=== PATIENT | female | born 1965 | race Caucasian/White ===

== ENCOUNTER 2019-02-02 18:59 | Emergency (ER) | payer BC ==
[2019-02-02] MEDS ORDERED: HYDROmorphone 2 MG/ML SDV IM ONE (19:18)
[2019-02-02] MEDS ORDERED: Sodium Chloride 0.9% 10 ML Syringe FLUSH PRN (19:18)
--- NOTE | 2019-02-02 19:22 | EDM.PDOC ---
ED HPI GENERAL MEDICAL PROBLEM - General Chief Complaint: General Stated Complaint: FALL Time Seen by Provider: 02/02/19 19:15 Source of Information: Reports: Patient, Family, RN History Limitations: Reports: No Limitations - History of Present Illness INITIAL COMMENTS - FREE TEXT/NARRATIVE: 53 yr female presents with right shoulder pain after fall at home, states her shoulder is dislocated. Friend is with her and is with her. States she fell forward onto sidewalk, didn't hit head and no LOC. Some pain to left knee and abrasion to left knee. Severe pain to right shoulder, good circulation noted to wrist, unable to touch arm r/t pain. X-ray ordered of shoulder. dental tech here to x-ray shoulder. Pt requesting Dr Jeronimo to assist. Consult with Dr Jeronimo and back up MD provider for this [employer], did present to ER for assessment of pt and review of x-rays. and friend providing comfort. Right Shoulder Pain Score (Numeric/FACES): 10 - Related Data Allergies Allergy/AdvReac Type Severity Reaction Status Date / Time amoxicillin [From Augmentin] Allergy Cannot Verified 02/02/19 22:22 Remember clavulanic acid Allergy Cannot Verified 02/02/19 22:22 [From Augmentin] Remember Sulfa (Sulfonamide Allergy Cannot Verified 02/02/19 22:22 Antibiotics) Remember Home Meds: Home Meds Metoprolol Succinate 1 tab PO DAILY 02/02/19 [History] Past Medical History HEENT History: Reports: Impaired Vision Cardiovascular History: Reports: High Cholesterol Respiratory History: Reports: None Gastrointestinal History: Reports: None 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: Musculoskeletal History: Reports: Osteoarthritis Neurological History: Reports: None Psychiatric History: Reports: Anxiety, Other (See Below) Other Psychiatric History: h/o anxiety Endocrine/Metabolic History: Reports: None Hematologic History: Reports: None Immunologic History: Reports: None Oncologic (Cancer) History: Reports: None Other Oncologic History: family hx Dermatologic History: Reports: None - Past Surgical History Female Surgical History: Reports: Section, Other (See Below) Musculoskeletal Surgical History: Reports: Arthroscopic Knee, Other (See Below) ED ROS GENERAL - Review of Systems Review Of Systems: See Below Constitutional: Reports: No Symptoms HEENT: Reports: No Symptoms. Denies: Glasses, Vision Change Respiratory: Reports: No Symptoms Cardiovascular: Reports: No Symptoms, Other (States history of heart problems) Musculoskeletal: Reports: Shoulder Pain, Other (knee pain). Denies: Neck Pain, Back Pain Skin: Reports: Other (minor bleeding from left knee, no other abrasions noted.) Neurological: Denies: Dizziness, Headache Psychiatric: Reports: Anxiety ED EXAM, GENERAL - Physical Exam Exam: See Below Exam Limited By: Physical Impairment (limited ROM and unable to examine arm.) General Appearance: Alert, Anxious, Other (extremely uncomfortable on presentation) Ears: Hearing Grossly Normal Nose: Normal Inspection, No Blood Throat/Mouth: Normal Voice, No Airway Compromise Head: Atraumatic, Normocephalic Neck: Normal Inspection, Supple, Full Range of Motion Respiratory/Chest: No Respiratory Distress Cardiovascular: Normal Peripheral Pulses, Regular Rate, Rhythm Extremities: Normal Capillary Refill, Limited Range of Motion (to left shoulder/ arm, propped with pillows. Deformity noted at shoulder area.) Neurological: Alert, Oriented, Normal Cognition Skin Exam: Warm, Dry, Normal Color Course - Vital Signs Last Recorded V/S: Last Vital Signs Temp Pulse 71 02/02/19 20:26 Resp 20 02/02/19 20:26 BP 130/60 02/02/19 20:47 Pulse Ox 97 02/02/19 20:26 - Orders/Labs/Meds Orders: Active Orders 24 hr Category Date Time Status Shoulder 1V Rt [CR] Stat Exams 02/02/19 19:37 Taken Shoulder Comp Rt [CR] Stat Exams 02/02/19 19:17 Taken Saline Lock Insert [OM.PC] Routine Oth 02/02/19 19:18 Ordered Meds: Medications Discontinued Medications Generic Name Dose Route Start Last Admin Trade Name Vic PRN Reason Stop Dose Admin Diazepam 5 mg 02/02/19 19:29 02/02/19 19:34 Valium IV 02/02/19 19:30 5 mg ONETIME ONE Administration Hydromorphone HCl 1 mg 02/02/19 19:18 02/02/19 19:17 Dilaudid IM 02/02/19 19:19 1 mg ONETIME ONE Administration Hydromorphone HCl 1 mg 02/02/19 19:29 02/02/19 19:32 Dilaudid IVPUSH 02/02/19 19:30 1 mg ONETIME ONE Administration Hydromorphone HCl 1 mg 02/02/19 19:52 02/02/19 19:51 Dilaudid IVPUSH 02/02/19 19:53 1 mg ONETIME ONE Administration Ondansetron HCl 4 mg 02/02/19 20:15 02/02/19 20:20 Zofran IVPUSH 02/02/19 20:16 4 mg ONETIME ONE Administration Sodium Chloride 10 ml 02/02/19 19:18 Saline Flush FLUSH ASDIRECTED PRN Keep Vein Open - Re-Assessments/Exams Free Text/Narrative Re-Assessment/Exam: 02/02/19 19:[address] Jeronimo. X-ray completed pre and post x-ray. Dilaudid 1 mg IM and Dilaudid 1mg IV given. Valium [address] Jeronimo slowly manipulated shoulder and back into place. 02/02/19 19:53 X-ray post dislocation with reduction noted. Pt states severe pain is achy, continues. Dilaudid 1 mg IV repeated. Will apply sling to arm, Rx for Vicoden 5/325 1 tab every 4-6 hour prn and Robaxin 500 mg, one tablet to use every 8 hr prn 02/02/19 19:58 Pt is resting well and no respiratory distress noted. She is visiting with her and no acute distress. F/U in clinic in 1 week. RN to monitor pt for another 40 minutes, Recommend to keep shoulder in alignment and protect shoulder and arm and keep arm next to body with use of the sling. Discussed discharge plan with use of Vicoden Robaxin, ice/heat to area as needed , Sling to arm X 1 week and RTC in 1 week to follow-up with PCP, may need PT consult at that time. Pt to call with any questions/concerns. RTC or ER if symptoms worsen. Departure - Departure Time of Disposition: 21:01 Disposition: Home, Self-Care 01 Condition: Good Clinical Impression: Dislocation, shoulder, anterior - Discharge Information *PRESCRIPTION DRUG MONITORING PROGRAM REVIEWED*: Not Applicable *COPY OF PRESCRIPTION DRUG MONITORING REPORT IN PATIENT ESAU: Not Applicable Instructions: Acetaminophen; Hydrocodone tablets or capsules, Methocarbamol tablets, Shoulder Dislocation, [id number] Forms: ED Department Discharge Additional Instructions: Take provided Vicodin as directed: 1 tablet by mouth every 4-6 hours as needed for pain. Also take provided Robaxin as directed: 1 tablet by mouth every 8 hours as needed for pain. Can also take Ibuprofen 600-800mg every 6-8 hours as needed for pain. Sling to affected arm for 1 week. May also use ice or heat to affected area to help with pain relief and reduce swelling. Follow up in clinic in 1 week. Diet and activity as tolerated. Call with any questions. - My Orders Last 24 Hours: My Active Orders 02/02/19 19:17 Shoulder Comp Rt [CR] Stat 02/02/19 19:18 Saline Lock Insert [OM.PC] Routine 02/02/19 19:37 Shoulder 1V Rt [CR] Stat - Assessment/Plan Last 24 Hours: My Active Orders 02/02/19 19:17 Shoulder Comp Rt [CR] Stat 02/02/19 19:18 Saline Lock Insert [OM.PC] Routine 02/02/19 19:37 Shoulder 1V Rt [CR] Stat Plan: Take Vicodin as directed: 1 tablet by mouth every 4-6 hours as needed for pain. Robaxin 1 tablet by mouth every 8 hours as needed for pain. May take Ibuprofen 600-800mg every 6-8 hours as needed for pain. Sling to affected arm for 1 week. Ice or heat to affected area will help with pain relief and reduce swelling. Follow up in clinic in 1 week, with PCP. Contact ER/provider if any questions or concerns.
[2019-02-02] MEDS ORDERED: HYDROmorphone 2 MG/ML SDV IVPUSH ONE (19:29)
[2019-02-02] MEDS ORDERED: diazePAM 5 MG/ML MDV IV ONE (19:29)
[2019-02-02] MEDS ORDERED: Acetaminophen/HYDROcodone 325-5 MG Tab ONE (19:30)
[2019-02-02] MEDS ORDERED: Methocarbamol 500 MG Tab ONE (19:30)
[2019-02-02] MEDS ORDERED: Ondansetron 4 MG Tab.DIS ONE (19:30)
[2019-02-02] MEDS ORDERED: HYDROmorphone 2 MG/ML Syringe IVPUSH ONE (19:52)
[2019-02-02] MEDS ORDERED: Ondansetron 4 MG/2 ML SDV IVPUSH ONE (20:15)
--- NOTE | 2019-02-03 09:24 | CR ---
DATE OF SERVICE: 02/02/19 CLINICAL DATA: shoulder dislocation, post reduction RIGHT SHOULDER: Comparison is made to a prior exam from earlier in the day. A single AP view demonstrates reduction of the anterior dislocation of the glenohumeral joint on the prior study. There is a questionable small osseous density adjacent to the anterior margin of the glenoid suspicious for a bony avulsion or loose body. No other significant findings. [id number] [facility]
--- NOTE | 2019-02-03 09:27 | CR ---
DATE OF SERVICE: 02/02/19 CLINICAL DATA: shoulder injury RIGHT SHOULDER: There is an anterior dislocation of the glenohumeral joint with anterior and inferior dislocation of the humeral head with respect to the glenoid. No fractures. No other significant findings. [id number] [facility]
== END 2019-02-02 21:01 | disposition home or self-care (01) ==
LOC: LB.ED 18:59
DX: S43.014A Anterior dislocation of right humerus, initial encounter (principal); S80.212A Abrasion, left knee, initial encounter; Z88.1 Allergy status to other antibiotic agents; Z88.2 Allergy status to sulfonamides; W10.1XXA Fall (on)(from) sidewalk curb, initial encounter
CPT/HCPCS: 23650; 73020-RT; 73030-RT; 96372; 96374; 96375; 99283-25; A9270-GY; J1170; J2405; J3360